=== PATIENT | female | born 1975 | race Two or more races ===

== ENCOUNTER 2024-03-07 12:05 | Outpatient (RCR) | payer BC, SELFPAY | END 2024-03-07 23:59 | disposition home or self-care (01) | LOC: RPT 12:05 | PROVIDERS: ATTENDING PHYSICIAN Radiology Radiation Oncology | DX: L90.5 Scar conditions and fibrosis of skin (principal); C50.411 Malignant neoplasm of upper-outer quadrant of right female breast; Z17.0 Estrogen receptor positive status [ER+] | CPT/HCPCS: 97163; 97535 ==

== ENCOUNTER 2025-02-21 06:15 | Day surgery (SDC) | payer BC, SELFPAY | END 2025-02-21 15:56 | disposition home or self-care (01) | LOC: GI 06:15 | PROVIDERS: ATTENDING PHYSICIAN Specialist; FAMILY PHYSICIAN Family Medicine | DX: Z12.11 Encounter for screening for malignant neoplasm of colon (principal); Z85.3 Personal history of malignant neoplasm of breast; Z83.719 Family history of colon polyps, unspecified; K57.30 Diverticulosis of large intestine without perforation or abscess without bleeding | CPT/HCPCS: G0105 ==